=== PATIENT | female | born 1990 | race Caucasian/White ===

== ENCOUNTER 2019-09-06 18:59 | Emergency (ER) | payer OTHER, MEDICAID ==
[~2019-09-06] VITALS: Ht 160 cm; Wt 98.3 kg
[2019-09-06 19:02] VITALS: BP 112/63
== END 2019-09-06 20:38 | disposition home or self-care (01) ==
LOC: ED 19:22
DX: O26.892 Other specified pregnancy related conditions, second trimester (principal); R10.2 Pelvic and perineal pain; N89.8 Other specified noninflammatory disorders of vagina; Z3A.17 17 weeks gestation of pregnancy
CPT/HCPCS: 76815; 99284

== ENCOUNTER 2019-09-15 15:48 | Emergency (ER) | payer OTHER, MEDICAID ==
[~2019-09-15] VITALS: Ht 157.5 cm; Wt 99.4 kg
--- NOTE | 2019-09-15 16:10 | NUR ---
first contact with pt. pt is 18 weeks and is having abd cramping and watery clear discharge. L5. Pt reprots started this morning. Pt denies any medical hx. pt's aox4. resps even and unlabored. bp/spo2 monitors in place. call light within reach. pa at bedside to evaluate at this time.
--- NOTE | 2019-09-15 16:13 | NUR ---
pt amb to br with steady gait. urine cup given.
--- NOTE | 2019-09-15 16:23 | NUR ---
URINE COLLECTED AND UA SENT.
[2019-09-15 16:33] LABS: MEAN CORPUSCULAR HEMOGLOBIN 31.9 pg (27.0-34.8); MEAN CORPUSCULAR HGB CONC 34.2 g/dL (32.4-35.8); MEAN CORPUSCULAR VOLUME 93.4 fL (80-100); MEAN PLATELET VOLUME 7.9 fL (7.4-10.4); PLATELET COUNT 214 x10^3/uL (130-400); RED BLOOD COUNT 3.67 x10^6/uL (3.82-5.3); RED CELL DISTRIBUTION WIDTH 12.9 % (9.6-15.2)
[2019-09-15 16:36] LABS: MICROSCOPIC NOT IND
[2019-09-15 16:44] VITALS: BP 99/53
[2019-09-15 16:44] LABS: ANION GAP 4 mmol/L (5-15); CALCIUM 8.7 mg/dL (8.5-10.1); CHLORIDE 107 mmol/L (98-107)
--- NOTE | 2019-09-15 16:44 | NUR ---
us at bedside at this time.
[2019-09-15 16:48] LABS: ALANINE AMINOTRANSFERASE 18 U/L (12-78); ALKALINE PHOSPHATASE 34 U/L (45-117); BILIRUBIN,TOTAL 0.5 mg/dL (0.2-1.0); CREATININE 0.57 mg/dL (0.55-1.02); TOTAL PROTEIN 6.6 g/dL (6.4-8.2)
[2019-09-15 17:19] LABS: BASOPHILS # (AUTO) 0.01 x10^3/uL (0-0.1); BASOPHILS % (AUTO) 1 % (0-1); EOSINOPHILS # (AUTO) 0.08 x10^3/uL (0-0.4); EOSINOPHILS % (AUTO) 3 % (1-7); LYMPHOCYTES # (AUTO) 1.45 x10^3/uL (1-3.4); LYMPHOCYTES % (AUTO) 51 % (22-44); MD SCAN; MONOCYTES # (AUTO) 0.32 x10^3/uL (0.2-0.8); MONOCYTES % (AUTO) 11 % (2-9); NEUTROPHILS # (AUTO) 0.98 x10^3/uL (1.8-6.8); NEUTROPHILS % (AUTO) 34 % (42-75)
--- NOTE | 2019-09-15 18:08 | NUR ---
Patient given discharge instructions and they have confirmed that they understand the instructions. this rn took pt to l&d by wheelchair.
== END 2019-09-15 18:09 | disposition home or self-care (01) ==
LOC: ED 16:21
DX: O26.892 Other specified pregnancy related conditions, second trimester (principal); R10.9 Unspecified abdominal pain; Z3A.17 17 weeks gestation of pregnancy; Z87.891 Personal history of nicotine dependence
CPT/HCPCS: 36415; 76815; 80053; 81003; 85025; 99284

== ENCOUNTER 2019-09-15 18:07 | Outpatient (CLI) | payer OTHER, MEDICAID ==
[~2019-09-15] VITALS: Ht 157.5 cm; Wt 97.7 kg
[2019-09-15 18:23] VITALS: BP 109/53
== END 2019-09-15 19:25 | disposition home or self-care (01) ==
LOC: LDOP 18:07
PROVIDERS: ATTEND Obstetrics & Gynecology
DX: O42.912 Preterm premature rupture of membranes, unspecified as to length of time between rupture and onset of labor, second trimester (principal); Z3A.18 18 weeks gestation of pregnancy
CPT/HCPCS: 76817; 99211; G0463

== ENCOUNTER → 2020-01-27 | Outpatient (CLI) | payer OTHER, MEDICAID ==
[~2020-01-27] MED LIST: ACET325T26 PO; DOCU-131 PO; IBUP200T49 PO; PREN1TAB60 PO
== END | disposition home or self-care (01) ==
LOC: STAR 14:51
PROVIDERS: ATTEND Obstetrics & Gynecology
DX: Z01.812 Encounter for preprocedural laboratory examination (principal); Z20.828 Contact with and (suspected) exposure to other viral communicable diseases
CPT/HCPCS: 36415; 87635

== ENCOUNTER 2020-01-28 12:24 | Inpatient (IN) | payer OTHER, MEDICAID ==
[~2020-01-28] VITALS: Ht 157.5 cm; Wt 111.8 kg
[2020-01-28] MEDS ORDERED: OXYTOCIN 30U/ 0.9% NaCL 500ML 500 ML IV PRN (13:00)
[2020-01-28] MEDS ORDERED: ONDANSETRON 2MG/ML, 2ML IVPush PRN (13:00)
[2020-01-28] MEDS ORDERED: TERBUTALINE 1 MG/ML, 1ML IVPush PRN (13:00)
[2020-01-28] MEDS ORDERED: PENICILLIN GK 5,000,000 UNITS in DEXTROSE 5% 100 ML IVPB ONE (13:00)
[2020-01-28] MEDS ORDERED: TERBUTALINE 1 MG/ML, 1ML SQ PRN (13:00)
[2020-01-28] MEDS ORDERED: D5%-LACTATED RINGERS 1,000 ML IV SCH (13:00)
[2020-01-28 13:16] LABS: BASOPHILS % (AUTO) 1 % (0-1); EOSINOPHILS % (AUTO) 1 % (1-7); LYMPHOCYTES % (AUTO) 25 % (22-44); MEAN CORPUSCULAR HEMOGLOBIN 27.4 pg (27.0-34.8); MEAN CORPUSCULAR HGB CONC 32.2 g/dL (32.4-35.8); MEAN PLATELET VOLUME 8.6 fL (7.4-10.4); MONOCYTES % (AUTO) 6 % (2-9); NEUTROPHILS % (AUTO) 68 % (42-75); PLATELET COUNT 252 x10^3/uL (130-400); RED BLOOD COUNT 4.61 x10^6/uL (3.82-5.3); RED CELL DISTRIBUTION WIDTH 14.9 % (9.6-15.2)
[2020-01-28 13:17] LABS: MD NO
[2020-01-28] MEDS: LACTATED RINGERS 1,000 ML IV SCH ×2 (13:29→18:16)
[2020-01-28] MEDS ORDERED: OXYTOCIN 30U/ 0.9% NaCL 500ML 500 ML ONE ×2 (13:36→20:21)
[2020-01-28] MEDS ORDERED: NEWBORN KIT ONE (13:36)
[2020-01-28] MEDS ORDERED: LIDOCAINE 1%, 20ML ONE (13:37)
[2020-01-28] MEDS ORDERED: MISOPROSTOL 200 MCG TABLET ONE (13:37)
[2020-01-28] MEDS ORDERED: PREN1TAB60 PO (14:49)
[2020-01-28] MEDS ORDERED: FENTANYL PF 100 MCG/2ML ONE ×2 (14:56→17:18)
[2020-01-28] MEDS: FENTANYL PF 100 MCG/2ML IVPush PRN ×2 (14:58→17:19)
[2020-01-28] MEDS ORDERED: FLU VACC QS2020-21(6MOS UP)/PF 60MCG/0.5 ML SYR IM-VACC ONE (15:00)
[2020-01-28 15:12] LABS: AMPHETAMINE SCREEN, URINE Negative (Negative); BARBITURATE SCREEN, URINE Negative (Negative); BENZODIAZEPINE SCREEN, URINE Negative (Negative); CANNABINOID SCREEN, URINE Negative (Negative); COCAINE SCREEN, URINE Negative (Negative); METHADONE SCREEN, URINE Negative (Negative); OPIATE SCREEN, URINE Negative (Negative)
[2020-01-28] MEDS ORDERED: PENICILLIN GK 2,500,000 UNITS in DEXTROSE 5% 100 ML IVPB SCH (17:00)
[2020-01-28] MEDS ORDERED: TERBUTALINE 1 MG/ML, 1ML ONE (18:41)
[2020-01-28] MEDS ORDERED: IBUPROFEN 600 MG TABLET ONE (20:20)
[2020-01-28] MEDS ORDERED: HYDROcodone/APAP 5/325 TABLET ONE (20:20)
[2020-01-28] MEDS ORDERED: DOCUSATE 100 MG CAPSULE PO PRN ×3 (20:30)
[2020-01-28] MEDS ORDERED: ACETAMINOPHEN 325 MG TABLET PO PRN ×3 (20:30)
[2020-01-28] MEDS ORDERED: ONDANSETRON 2MG/ML, 2ML IV PRN ×2 (20:30)
[2020-01-28] MEDS ORDERED: SIMETHICONE 80 MG CHEW TAB PO PRN ×3 (20:30)
[2020-01-28] MEDS: HYDROcodone/APAP 5/325 TABLET PO PRN (20:30)
[2020-01-28] MEDS: IBUPROFEN 600 MG TABLET PO PRN (20:30)
[2020-01-28] MEDS ORDERED: OXYcodone/APAP 5/325MG TABLET PO PRN ×2 (20:30)
[2020-01-28] MEDS ORDERED: OXYTOCIN 30U/ 0.9% NaCL 500ML 500 ML IV SCH ×3 (20:30)
[2020-01-28] MEDS ORDERED: IBUPROFEN 600 MG TABLET PO PRN (20:30)
[2020-01-28] MEDS ORDERED: OXYcodone IR 5MG TABLET PO PRN (20:30)
[2020-01-28] MEDS ORDERED: MISOPROSTOL 200 MCG TABLET PR PRN ×2 (20:30)
[2020-01-28] MEDS ORDERED: HYDROcodone/APAP 5/325 TABLET PO PRN ×3 (20:30→22:00)
[2020-01-28 22:30] VITALS: BP 100/67
[2020-01-29 00:10] VITALS: BP 96/62
[2020-01-29] MEDS: HYDROcodone/APAP 5/325 TABLET PO PRN ×2 (02:19→08:31)
[2020-01-29] MEDS: IBUPROFEN 600 MG TABLET PO PRN ×4 (02:19→22:28)
[2020-01-29 04:20] VITALS: BP 98/62
[2020-01-29 05:51] LABS: BASOPHILS % (AUTO) 0 % (0-1); EOSINOPHILS % (AUTO) 0 % (1-7); LYMPHOCYTES % (AUTO) 16 % (22-44); MEAN CORPUSCULAR HEMOGLOBIN 27.4 pg (27.0-34.8); MEAN CORPUSCULAR HGB CONC 31.9 g/dL (32.4-35.8); MEAN PLATELET VOLUME 8.4 fL (7.4-10.4); MONOCYTES % (AUTO) 7 % (2-9); NEUTROPHILS % (AUTO) 77 % (42-75); PLATELET COUNT 228 x10^3/uL (130-400); RED BLOOD COUNT 4.11 x10^6/uL (3.82-5.3)
[2020-01-29 06:40] LABS: MD NO
[2020-01-29 07:23] VITALS: BP 100/67
[2020-01-29] MEDS: PRENATAL VIT/IRON/FA 1 EACH TABLET PO SCH (08:30)
[2020-01-29] MEDS ORDERED: PRENATAL VIT/IRON/FA 1 EACH TABLET PO SCH ×2 (09:00)
[2020-01-29 12:06] VITALS: BP 96/66
[2020-01-29 16:15] VITALS: BP 101/69
[2020-01-29 21:30] VITALS: BP 97/58
[2020-01-30] MEDS: IBUPROFEN 600 MG TABLET PO PRN ×2 (04:29→11:03)
[2020-01-30] MEDS: HYDROcodone/APAP 5/325 TABLET PO PRN ×2 (04:29→11:03)
[2020-01-30 08:00] VITALS: BP 110/76
[2020-01-30] MEDS: PRENATAL VIT/IRON/FA 1 EACH TABLET PO SCH (09:20)
[2020-01-30] MEDS ORDERED: DOCU-131 PO (10:45)
[2020-01-30] MEDS ORDERED: ACET325T26 PO (10:46)
[2020-01-30] MEDS ORDERED: IBUP200T49 PO (10:47)
== END 2020-01-30 14:53 | disposition home or self-care (01) | DRG 807 ==
LOC: LDOP 12:24 → LDIP 12:37 → 2NW 22:16
PROVIDERS: ADMIT Obstetrics & Gynecology; ATTEND Obstetrics & Gynecology
PROC: 10E0XZZ Delivery of Products of Conception, External Approach (ICD-10-PCS; principal; 2020-01-28)
PROC: 10907ZC Drainage of Amniotic Fluid, Therapeutic from Products of Conception, Via Natural or Artificial Opening (ICD-10-PCS; 2020-01-28)
PROC: 3E0234Z Introduction of Serum, Toxoid and Vaccine into Muscle, Percutaneous Approach (ICD-10-PCS; 2020-01-28)
DX: O24.424 Gestational diabetes mellitus in childbirth, insulin controlled (principal); Z37.0 Single live birth; O69.81X0 Labor and delivery complicated by cord around neck, without compression, not applicable or unspecified; Z20.828 Contact with and (suspected) exposure to other viral communicable diseases; Z88.5 Allergy status to narcotic agent; Z91.040 Latex allergy status; Z3A.37 37 weeks gestation of pregnancy; Z23 Encounter for immunization
CPT/HCPCS: 36415; J7121; 80307; 82962; 85025; 86592; 86850; 86900; 87635; G0378; J2540; J3010; J2590; J7120